=== PATIENT | male | born 1940 | race Two or more races ===

== ENCOUNTER 2024-10-03 08:26 | Inpatient (IN) | payer MEDICARE, MEDICAID, SELFPAY ==
[2024-10-03] VITALS (10 sets, daily range): BP systolic 124–163; BP diastolic 59–87; PULSE 61–78; RESP 16–92; TEMP 36.6–37.1; O2SAT 94–98; BMI 28.6
--- NOTE | 2024-10-03 | XR_ITS ---
Examination: Abdomen AP single view Technique: AP portable supine abdomen, single view Exam date and time: October 03, 2024 1805 hours INDICATIONS: Abdominal pain and distention this week, small bowel obstruction pattern on CT abdomen and pelvis October 03, 2024 1333 hours, 2.5 hour delayed film for small bowel series today FINDINGS: There are contrast distended small bowel loops, jejunal Ileal loops are normal in caliber and there is contrast in the colon IMPRESSION: Negative for complete small bowel obstruction, no further films are needed
--- NOTE | 2024-10-03 08:56 | XR_ITS ---
Examination: CT abdomen with intravenous contrast CT pelvis with intravenous contrast 2-D coronal reconstructions 2-D sagittal reconstructions Date and time of exam:October 03, 2024 at 1333 hrs. Indications: Nausea vomiting abdominal pain beginning 3 days ago Comparison: September 07, 2022. CTDI: vol (mGy) 9.06 DLP: (mGycm) 501 Technique: Multiple axial sections of the abdomen and pelvis have been obtained. 64 slice high-resolution scanner used. 3 mm axial sections have been obtained, post intravenous injection 60 cc Isovue-370 2-D sagittal, coronal reconstructions obtained. Low dose protocols were performed. One or more of the following dose reduction techniques were used; automated exposure control, adjustment of the mA and/or KV according to patient size, use of iterative reconstruction technique. Findings: Atelectasis versus mild pneumonia at the lung bases Mild enlargement cardiac contour Mucosal thickening involving the stomach Multiple contrast and fluid distended small bowel loops No hydronephrosis Aorta normal size Negative for ascites No pericecal inflammatory change No diverticulitis Urinary bladder intact Impression: Small bowel obstruction pattern Recommend Gastrografin small bowel series follow-up
--- NOTE | 2024-10-03 08:57 | EKG_ITS ---
[facility] Test Date: 2024-10-03 Pat Name: VERNON RAMIREZ Department: Room: - Gender: Male [employer] Supervisor: : 1940 Requested By: Rashid Banda Order Number: [id number] Reading MD: Rashid Banda Measurements Intervals [place] Rate: 61 P: 82 DC: 201 QRS: -9 QRSD: 110 T: 68 QT: 333 QTc: 335 Interpretive Statements SINUS RHYTHM NONSPECIFIC T-WAVE ABNORMALITY Compared to ECG 07/08/2022 11:35:11 T-wave abnormality now present Intraventricular conduction delay no longer present /store/S0/[id number]/ecg/[id number].pdf
--- NOTE | 2024-10-03 08:57 | XR_ITS ---
Examination: AP chest single view Technique one AP portable semiupright chest single view Date and time: October 03, 2024, 0917 hrs. Comparison April 16, 2023 Indications: Coughing shortness of breath today. Findings: Minimal opacity at the right base Mild prominence left ventricle Left lung clear Impression: Suspicious for early right base pneumonia
[2024-10-03] MEDS: PANTOPRAZOLE INJ 40 MG VIAL IVP (09:21)
[2024-10-03] MEDS: SODIUM CHLORIDE 0.9% 1000 ML 1,000 ML 100 ML IV (09:22)
[2024-10-03 10:15] LABS: Basophils # (Auto) 0.1 Thou/mm3 (0.0-0.2); Basophils % (Auto) 0 % (0-2.5); Eosinophils % (Auto) 0 % (0-10); Hemoglobin 15.9 g/dL (13.5-16.0); Immature Granulocytes % (Auto) 0 % (0-0); Immature Granulocytes Auto 0.05 Thou/mm3 (0.00-0.00); Lymphocytes # (Auto) 0.9 Thou/mm3 (1.0-4.8); Lymphocytes % (Auto) 5 % (10-50); Mean Corpuscular HGB Conc 34.6 g/dl (31.0-37.0); Mean Corpuscular Hemoglobin 29.4 pg (25.0-35.0); Mean Corpuscular Volume 85 fL (80-100); Monocytes % (Auto) 6 % (0-12); Neutrophils # (Auto) 16.1 Thou/mm3 (1.8-7.7); Neutrophils % (Auto) 89 % (37-80); Nucleated Red Blood Cell % 0 /100 WBC (0); Platelet Count 286 Thou/mm3 (140-440); RDW Standard Deviation 40.2 fL (35.1-43.9); White Blood Count 18.2 Thou/mm3 (3.8-10.6)
[2024-10-03 10:34] LABS: Alanine Aminotransferase 16 U/L (10-49); Albumin, Serum 4.6 gm/dL (3.4-4.8); Albumin/Globulin Ratio 1.7 (1.2-2.2); Alkaline Phosphatase 89 U/L (46-116); Anion Gap 11 (7-16); BUN/Creatinine Ratio 12 Ratio (12-20); Bilirubin,Total 1.5 mg/dL (0.3-1.2); Blood Urea Nitrogen 14 mg/dL (9-23); Calcium 9.7 mg/dL (8.3-10.6); Calcium (Corrected) 9.7 mg/dL (8.5-10.1); Carbon Dioxide 28.2 mMol/L (20.0-31.0); Chloride 102 mMol/L (98-107); Creatinine (Component) 1.2 mg/dL (0.6-1.3); Estimated Creatinine Clearance 47.2 mL/min (>60); Globulin 2.7 gm/dL (2.3-3.5); Glucose 133 mg/dL (74-106); Lipase 35 U/L (12-53); Osmolality,Calculated 283 (275-295); Potassium 3.4 mMol/L (3.4-5.1); Sodium 141 mMol/L (136-145); Total Protein 7.3 gm/dL (5.7-8.2); Troponin I < 0.020 ng/mL (0.0-0.045); eGFR 60 See Note
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
[2024-10-03 11:12] LABS: Partial Thromboplastin Time 25.3 Seconds (22.0-36.0)
[2024-10-03] MEDS: ONDANSETRON INJ 2 MG/ML INJ 2 ML 8 MG IVP (11:31)
[2024-10-03] MEDS: MORPHINE SULF INJ 10 MG/ML VIAL 4 MG IVP (14:12)
[2024-10-03 14:24] LABS: Lactate (Lactic Acid) 1.3 mMol/L (0.4-2.0)
[2024-10-03 14:26] LABS: Collection Type, Urine Clean Catch; Squamous Epithelial Cell,Urine 0 /hpf (0-5)
[2024-10-03] MEDS: PIPER/TAZO 3.375 GM PREMIX 3.375 GM/50 ML BAG IV (14:28)
[2024-10-03 14:42] LABS: Bilirubin,Urine Negative (Negative); Blood,Urine Negative (Negative); Clarity,Urine Clear (Clear/Hazy); Color,Urine Yellow (Lt Yel-Yel); Glucose, Urine Negative (Negative); Ketones,Urine Negative (Negative); Leukocyte Esterase,Urine Negative (Negative); Nitrite,Urine Negative (Negative); PH,Urine 6.5 (5.0-7.0); Protein,Urine 1+ (Neg - Trace); RBC,Urine 2 /hpf (0-3); Specific Gravity,Urine 1.027 (1.001-1.035); Urobilinogen,Urine Negative mg/dL (0.0-1.0); WBC,Urine 1 /hpf (0-5)
--- NOTE | 2024-10-03 15:03 | XR_ITS ---
Examination: Small bowel series with KUB AP abdomen 3 views Date and time: September, 1530 hours INDICATIONS: Abdominal pain and distention this week, small bowel obstruction pattern on CT abdomen and pelvis October 03, 2024 1335 hours TECHNIQUE AND FINDINGS: 120 cc Gastrografin administered with AP supine portable abdomen at 1 minute 30 minutes and 1 hour Contrast in distended small bowel loops measuring up to 3.6 cm in dimension. IMPRESSION: Small bowel obstruction pattern Recommend follow-up abdomen films at 6:00 PM 8:00 PM 10:00 PM
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
--- NOTE | 2024-10-03 17:47 | XR_ITS ---
Examination: AP chest single view TECHNIQUE: AP portable semiupright chest single view Date and time: October 03, 2024 1805 hours INDICATIONS: Post orogastric tube placement FINDINGS: Opacified orogastric tube tip in the stomach Contrast in the stomach Normal heart size IMPRESSION: Orogastric tube satisfactory position
[2024-10-03] MEDS: RINGERS LACTATED 1000 ML 1,000 ML 75 ML IV (18:13)
--- NOTE | 2024-10-03 19:00 | PC.NURSE ---
RECEIVED REPORT FROM DAY SHIFT RN ON DUTY,PATIENT SON PROMISED TO BRING PATIENT HOME MEDS FOR RECONCILLATION.
[2024-10-04] VITALS (10 sets, daily range): BP systolic 126–175; BP diastolic 68–97; PULSE 54–74; RESP 16–95; TEMP 36.5–36.8; O2SAT 92–95
[2024-10-04 05:48] LABS: Basophils % (Auto) 1 % (0-2.5); Eosinophils # (Auto) 0.1 Thou/mm3 (0.0-0.5); Eosinophils % (Auto) 2 % (0-10); Hematocrit 37.2 % (41.0-53.0); Hemoglobin 12.9 g/dL (13.5-16.0); Immature Granulocytes % (Auto) 0 % (0-0); Immature Granulocytes Auto 0.02 Thou/mm3 (0.00-0.00); Lymphocytes # (Auto) 1.6 Thou/mm3 (1.0-4.8); Lymphocytes % (Auto) 27 % (10-50); Mean Corpuscular HGB Conc 34.7 g/dl (31.0-37.0); Mean Corpuscular Hemoglobin 30.1 pg (25.0-35.0); Mean Corpuscular Volume 87 fL (80-100); Monocytes # (Auto) 0.5 Thou/mm3 (0.0-0.8); Monocytes % (Auto) 9 % (0-12); Neutrophils # (Auto) 3.7 Thou/mm3 (1.8-7.7); Neutrophils % (Auto) 61 % (37-80); Nucleated Red Blood Cell % 0 /100 WBC (0); Platelet Count 239 Thou/mm3 (140-440); RDW Standard Deviation 41.2 fL (35.1-43.9); Red Blood Count 4.28 Miln/mm3 (4.50-5.90); White Blood Count 6.1 Thou/mm3 (3.8-10.6)
[2024-10-04 06:14] LABS: Alanine Aminotransferase 23 U/L (10-49); Albumin, Serum 3.8 gm/dL (3.4-4.8); Albumin/Globulin Ratio 1.7 (1.2-2.2); Alkaline Phosphatase 74 U/L (46-116); Anion Gap 11 (7-16); BUN/Creatinine Ratio 16 Ratio (12-20); Bilirubin,Total 2.3 mg/dL (0.3-1.2); Blood Urea Nitrogen 16 mg/dL (9-23); Calcium 8.7 mg/dL (8.3-10.6); Calcium (Corrected) 8.9 mg/dL (8.5-10.1); Carbon Dioxide 27.9 mMol/L (20.0-31.0); Chloride 107 mMol/L (98-107); Estimated Creatinine Clearance 56.7 mL/min (>60); Globulin 2.2 gm/dL (2.3-3.5); Glucose 94 mg/dL (74-106); Magnesium 2.4 mg/dL (1.6-2.6); Osmolality,Calculated 291 (275-295); Phosphorous 2.3 mg/dL (2.4-5.1); Potassium 3.2 mMol/L (3.4-5.1); Sodium 146 mMol/L (136-145); eGFR > 60 See Note
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
[2024-10-04] MEDS: ASPIRIN EC 81 MG TABEC PO (09:25)
[2024-10-04] MEDS: Lisinopril 20 MG TABLET 40 MG PO (09:25)
[2024-10-04] MEDS: POTASSIUM CHLORIDE 20 mEq TABCR 40 MEQ PO (09:25)
[2024-10-04] MEDS: METOPROLOL SUCCINATE XL 25 MG TABCR 100 MG PO (09:25)
[2024-10-04] MEDS: ENOXAPARIN SOD INJ 40 MG/0.4 ML SYRINGE SC (09:26)
--- NOTE | 2024-10-04 10:27 | XR_ITS ---
Examination: Abdomen sonogram, Limited Date and time of exam: October 04, 2024 1118 hours INDICATIONS: Abdominal pain beginning 2 months ago, cholecystectomy Technique: Real-time anglin scale transabdominal sonographic images of the upper abdomen obtained. Findings: Absent gallbladder Common bile duct 0.4 cm no stones Pancreatic head 2.0 cm Liver 14.6 cm irregular contour fatty infiltration Normal hepatopedal portal venous flow Patent IVC IMPRESSION: Negative for common bile duct stones Fatty liver, suspect primary hepatocellular disease
--- NOTE | 2024-10-04 15:44 | PC.SS ---
rounding note: adv diet. Possible d/c Friday
[2024-10-04] MEDS: ACETAMINOPHEN 325 MG TABLET 650 MG PO (17:20)
[2024-10-04] MEDS: ATORVASTATIN CALCIUM 10 MG TABLET 40 MG PO (21:18)
[2024-10-04] MEDS: amLODIPine BESYLATE 5 MG TABLET 10 MG PO (21:19)
[2024-10-05] VITALS: BP 134/69; PULSE 67; RESP 17; TEMP 36.6; O2SAT 93
[2024-10-05 04:00] VITALS: BP 127/64; PULSE 65; RESP 17; TEMP 36.7; O2SAT 93
[2024-10-05 05:25] LABS: Basophils # (Auto) 0.1 Thou/mm3 (0.0-0.2); Basophils % (Auto) 1 % (0-2.5); Eosinophils # (Auto) 0.1 Thou/mm3 (0.0-0.5); Eosinophils % (Auto) 3 % (0-10); Hematocrit 40.2 % (41.0-53.0); Hemoglobin 13.3 g/dL (13.5-16.0); Immature Granulocytes % (Auto) 0 % (0-0); Immature Granulocytes Auto 0.01 Thou/mm3 (0.00-0.00); Lymphocytes # (Auto) 1.8 Thou/mm3 (1.0-4.8); Lymphocytes % (Auto) 38 % (10-50); Mean Corpuscular HGB Conc 33.1 g/dl (31.0-37.0); Mean Corpuscular Hemoglobin 29.8 pg (25.0-35.0); Mean Corpuscular Volume 90 fL (80-100); Monocytes # (Auto) 0.5 Thou/mm3 (0.0-0.8); Monocytes % (Auto) 10 % (0-12); Neutrophils # (Auto) 2.2 Thou/mm3 (1.8-7.7); Neutrophils % (Auto) 48 % (37-80); Nucleated Red Blood Cell % 0 /100 WBC (0); Platelet Count 257 Thou/mm3 (140-440); RDW Standard Deviation 42.3 fL (35.1-43.9); Red Blood Count 4.46 Miln/mm3 (4.50-5.90); White Blood Count 4.7 Thou/mm3 (3.8-10.6)
[2024-10-05 06:10] LABS: Alanine Aminotransferase 22 U/L (10-49); Albumin, Serum 3.8 gm/dL (3.4-4.8); Albumin/Globulin Ratio 1.7 (1.2-2.2); Alkaline Phosphatase 73 U/L (46-116); Anion Gap 11 (7-16); BUN/Creatinine Ratio 14 Ratio (12-20); Bilirubin,Total 1.4 mg/dL (0.3-1.2); Blood Urea Nitrogen 13 mg/dL (9-23); Calcium 8.9 mg/dL (8.3-10.6); Calcium (Corrected) 9.1 mg/dL (8.5-10.1); Carbon Dioxide 26.9 mMol/L (20.0-31.0); Chloride 107 mMol/L (98-107); Creatinine (Component) 0.9 mg/dL (0.6-1.3); Globulin 2.3 gm/dL (2.3-3.5); Glucose 97 mg/dL (74-106); Magnesium 2.1 mg/dL (1.6-2.6); Osmolality,Calculated 288 (275-295); Phosphorous 2.5 mg/dL (2.4-5.1); Sodium 145 mMol/L (136-145); Total Protein 6.1 gm/dL (5.7-8.2); eGFR > 60 See Note
[2024-10-05 07:27] VITALS: BP 133/72; PULSE 81; RESP 15; TEMP 36.5; O2SAT 96
--- NOTE | 2024-10-05 08:13 | XR_ITS ---
Examination: Abdomen AP single view Technique: AP portable supine abdomen, single view Exam date and time: October 05, 2024 0900 hours INDICATIONS: Mid abdominal pain today. FINDINGS: Contrast present throughout the colon No obstruction No free air IMPRESSION: Nonobstructive bowel gas pattern
[2024-10-05 08:50] VITALS: BP 133/72; PULSE 81
[2024-10-05] MEDS: Lisinopril 20 MG TABLET 40 MG PO (08:50)
[2024-10-05 08:51] VITALS: BP 133/72; PULSE 81
[2024-10-05] MEDS: ASPIRIN EC 81 MG TABEC PO (08:51)
[2024-10-05] MEDS: METOPROLOL SUCCINATE XL 25 MG TABCR 100 MG PO (08:51)
[2024-10-05] MEDS: ENOXAPARIN SOD INJ 40 MG/0.4 ML SYRINGE SC (08:52)
--- NOTE | 2024-10-05 10:41 | PC.SS ---
Initial assessment: patient is an 84-year old male admitted for SBO. Patient is Citizen Of [place] speaking. Patient lives at home with family. Patient was able to confirm demographic information. Patient states his daughterTonie to be his emergency contact. Patient reports being independent with ADL's and denies the use of any home DME. Patient followed by Cinthya Angulo for primary care. Patient plans to return home upon discharge, informs his family will transport home. No needs identified and community resource handout provided to the patient. D/c plan: Home Next of kin: daughterTonie
[2024-10-05] MEDS: MG HYD/AL HYD/SIME (Maalox Reg) SUSP 30 ML UDC PO (11:06)
[2024-10-05 12:00] VITALS: BP 134/65; PULSE 84; RESP 17; TEMP 36.6; O2SAT 97
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
== END 2024-10-05 13:04 | disposition home or self-care (01) | DRG 390 ==
LOC: SERX 11:26 → SERHOLD 15:17 → S3SX 17:52
PROVIDERS: Admitting Provider Internal Medicine; Emergency Provider Family Medicine; PCP Family Medicine; Visit Provider Internal Medicine
DX: K56.609 Unspecified intestinal obstruction, unspecified as to partial versus complete obstruction (principal); R73.03 Prediabetes; Z95.5 Presence of coronary angioplasty implant and graft; I10 Essential (primary) hypertension; I25.10 Atherosclerotic heart disease of native coronary artery without angina pectoris; D72.829 Elevated white blood cell count, unspecified; K21.9 Gastro-esophageal reflux disease without esophagitis; K76.0 Fatty (change of) liver, not elsewhere classified; Z79.82 Long term (current) use of aspirin; Z79.899 Other long term (current) drug therapy
CPT/HCPCS: 36415; 71045; 74018; 74177; 74250; 76705; 80053; 81001; 83605; 83690; 83735; 84100; 84484; 85025; 85610; 85730; 87040; 87811; 93005; 96361; 96365; 96366; 96375; 99285; A4649; J1650; J2270; J2405; J2470; J2543; J7030; J7120; Q9963; Q9967; A9270